=== PATIENT | female | born 1970 | race Caucasian/White ===

== ENCOUNTER 2017-01-16 08:06 | Emergency (ER) | payer BC ==
[2017-01-16] MEDS ORDERED: NS 0.9% 1000 ML* 2,000 ML IV ONE (08:59)
[2017-01-16] MEDS ORDERED: Ondansetron INJ* 2 MG/ML VIAL IV ONE (08:59)
--- NOTE | 2017-01-16 09:45 | UC ---
Wilbur Meyer Salem, scribed for Jennifer Han MD on 01/16/17 at 0901 . General HPI - HPI Summary HPI Summary: Patient is a 46 y/o female who presents to the with vomiting since 2 days ago. Her last vomiting episode was this morning and her last meal was yesterday afternoon. She reports a headache, chills, and occasional diarrhea and constipation, but denies fever. No abdominal pain. No dysuria. 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 She reports that no one at work or home is sick. Pt also states that her menstrual period began a week ago, but she is still experiencing heavy flow. She reports going through 5-6 pads/tampons per day. She states that this is not unusual for her, but she is concerned because of the vomiting. No lightheaded. She states she is on no medication and has no known drug allergies. Patients medication reviewed this visit. - History of Current Complaint Stated Complaint: VOMITING,HEAVY PERIOD Hx Obtained From: Patient Onset/Duration: Gradual Onset, Lasting Days, Still Present Timing: Constant Onset Severity: Moderate Current Severity: Moderate Associated Signs & Symptoms: Positive: Headache - Chills, diarrhea, and constipation., Other - Allergy/Home Medications Allergies/Adverse Reactions: Allergies Allergy/AdvReac Type Severity Reaction Status Date / Time No Known Allergies Allergy Verified 01/16/17 08:14 PMH/Surg Hx/FS Hx/Imm Hx Previously Healthy: Yes Cancer History Of: Denies: Breast Cancer - Surgical History Surgical History: None - Family History Known Family History: Positive: Cardiac Disease - Social History Occupation: Employed Full-time Lives: With Family Alcohol Use: None Substance Use Type: None Smoking Status (MU): Never Smoked Tobacco Review of Systems Constitutional: Chills, Other - No fever. Skin: Negative Eyes: Negative ENT: Negative Respiratory: Negative Cardiovascular: Negative Gastrointestinal: Diarrhea, Other - Constipation. Genitourinary: Negative Motor: Negative Neurovascular: Negative Musculoskeletal: Negative Neurological: Negative Psychological: Negative All Other Systems Reviewed And Are Negative: Yes Physical Exam Triage Information Reviewed: Yes Appearance: Well-Appearing, No Pain Distress, Well-Nourished Vital Signs: Initial Vital Signs Temp 99.4 F 01/16/17 08:14 Pulse 74 01/16/17 08:14 Resp 18 01/16/17 08:14 BP 139/87 01/16/17 08:14 Pulse Ox 98 01/16/17 08:14 Vital Signs Reviewed: Yes Eye Exam: Normal ENT Exam: Normal ENT: Positive: Hearing grossly normal, TMs normal, Other: - TM x 2 clear mmpasty , lips dry Dental Exam: Normal Neck exam: Normal Neck: Positive: Supple, Nontender, No Lymphadenopathy Respiratory Exam: Normal Respiratory: Positive: Chest non-tender, Lungs clear, Normal breath sounds, No respiratory distress, No accessory muscle use Cardiovascular Exam: Normal Cardiovascular: Positive: RRR, No Murmur Abdominal Exam: Normal Abdomen Description: Positive: Nontender, No Organomegaly, Soft, Other: - abd soft + BS no guarding, no rebound Bowel Sounds: Positive: Hypoactive Musculoskeletal Exam: Normal Neurological Exam: Normal Neurological: Positive: Alert, Muscle Tone Normal Psychological Exam: Normal Skin Exam: Normal Diagnostics - Laboratory Diagnostic Studies Completed/Ordered: POC Ur test: negative. Re-Evaluation - Re-Evaluation First Eval Re-Evaluation Time: 09:45 Change: Improved Comment: taking po water, feeling improved Second Eval Re-Evaluation Time: 10:30 Change: Improved Comment: She is feeling better, but reports a mild headache. Pt asked for grilled cheese and soup. Will receive some crackers in the UC. Course/Dx - Course Course Of Treatment: Pt with n/v and feeling dehydrated x 48 hours. Pt also with heavy periods. No sick contacts. Pt appears dry, otherwise non concerning exam - Differential Dx - Multi-Symptom Provider Diagnoses: dehydration. nausea, vomiting. menorrhagia Discharge - Discharge Plan Condition: Stable Disposition: HOME Prescriptions: Ondansetron ODT TAB* [Zofran 4 MG Odt TAB*] 4 mg PO Q6H PRN #10 tab.odt PRN Reason: Nausea Patient Education Materials: Acute Nausea and Vomiting (ED), Menorrhagia (ED) Forms: *Work Release Referrals: Aura Horowitz PA [Primary Care Provider] - Additional Instructions: -For the first 8 hours, it is recommend you drink plenty of clears - water, popsicles, gatorade, juice, soup broth and bland foods (dry toast, scrambled eggs, crackers, noodle) Wait until you feel better before eating spicy food, acidic food, fried food, fatty food - Okay to take medication as prescribed for nausea - GEt plenty of restful sleep - Contact your doctor to schedule a follow-up appointment. Contact your doctor or return with questions or concerns The documentation as recorded by the Wilbur walker Salem accurately reflects the service I personally performed and the decisions made by me, Jennifer Han MD.
[2017-01-16] MEDS ORDERED: Acetaminophen TAB* 325 MG PO ONE (10:32)
[2017-01-16 11:04] VITALS: BP 144/73
== END 2017-01-16 11:15 | disposition home or self-care (01) ==
LOC: UCEAST 08:06
DX: E86.0 Dehydration (principal); R11.2 Nausea with vomiting, unspecified; N92.0 Excessive and frequent menstruation with regular cycle
CPT/HCPCS: 81003; 84702; 87077; 87086; 87186; 96360; 96374; 99212; A9270-GY; G0463; J2405

== ENCOUNTER 2019-08-09 10:00 | Emergency (ER) | payer SELFPAY ==
--- OUTSIDE RECORDS SUMMARY | 2019-08-09 10:05 | XMS REPORT | Continuity of Care Document ---
:1970 External Reference #:[id number] Author Name Hamzah Johnson (transmitted by agent of provider [facility]) Address [address] [place] [address] Care Team Providers Name Role Phone HCP given Care Team Information Production Control Specialist Unavailable [facility] - Care Team Information Production Control Specialist [phone] Gastroenterology Neal Elias MD - Cardiovascular Care Team Information Production Control Specialist Disease Problems Active Problems Provider Date Pure hypercholesterolemia Aura Horowitz, P.AAlesha Onset: 02/01/2011 Obesity Aura Horowitz P.AAlesha Onset: 02/01/2011 Rosacea Aura Horowitz P.AAlesha Onset: 02/01/2011 Heart murmur Hamzah Johnson Onset: 02/01/2011 Hypothyroidism Aura Horowitz P.A. Onset: 11/04/2018 Mixed hyperlipidemia Aura Horowitz P.AAlesha Onset: 11/04/2018 Depressive disorder Aura Horowitz P.AAlesha Onset: 07/29/2019 Social History Type Date Description Comments Sex Unknown Tobacco Use Start: Unknown Denies Cigarette Use ETOH Use Denies alcohol use Recreational Drug Use Denies Drug Use Tobacco Use Start: Unknown Patient has never smoked Smoking Status Reviewed: 06/03/18 Patient has never smoked Seat Belt/Car Seat always uses seat belt Allergies, Adverse Reactions, Alerts Description No Known Drug Allergies Medications Active Medications SIG Qnty Indications Ordering Date Provider Doxycycline Hyclate 2 caps at one time 2caps S40.262A All [facility]bour, 01/2019 M.D. 100mg Capsules Levothyroxine Sodium take 1 tablet by 90tabs Z00.01 [facility], 11/15 mouth every M.D. 88mcg Tablets sunday, sunday, sunday (need labs in 4-6 weeks) Sertraline HCL 1 every morning 90tabs F32.9 [facility], 02/25/2018 100mg for depression M.D. Tablets One Daily 1 tab po daily Unknown 09/30/2017 Tablets Omeprazole 1 by mouth every 60caps K30 All [facility]bour, 02/28/2016 40mg day on empty M.D. Capsules DR stomach until gone Immunizations CPT Code Status Date Vaccine Lot # [id number] Given 07/29/2019 Influenza Virus Vaccine, Quadrivalent, Split, [id number] Preservative Free [id number] Given 06/03/2018 Influenza Virus Vaccine, Quadrivalent, Split, [id number] Preservative Free 02389 Given 06/04/2017 Influenza Virus Vaccine, Quadrivalent, Split, [id number] Preservative Free [id number] Given 12/22/2013 Adacel or Boostrix, [id number] Vital Signs Date Vital Result Comment 07/29/2019 9:51am BP Systolic 130 mmHg BP Diastolic 70 mmHg Height 67.25 inches 5'7.25" Weight 205.00 lb BMI (Body Mass Index) 31.9 kg/m2 11/04/2018 8:50am BP Systolic 124 mmHg BP Diastolic 84 mmHg Height 67 inches 5'7" Weight 203.00 lb BMI (Body Mass Index) 31.8 kg/m2 Results Test Acquired Date Facility Test Result H/L Range Note Order 07/29/2019 [facility] Occult Blood, F I T <pending> (Fecal Immunochemical Test) Procedures Date Code Description Status 07/11/2018 [id number] Mammogram Completed 07/03/2018 [id number] Mammogram Completed Medical Devices Description No Information Available Encounters Type Date Location Provider Dx Diagnosis Office Visit 07/29/2019 Main Office Aura Horowizt, S40.262A Insect bite 9:40a P.A. (nonvenomous) of left shoulder, init encntr E03.9 Hypothyroidism, unspecified Z23 Encounter for immunization Z12.11 Encounter for screening for malignant neoplasm of colon R01.1 Cardiac murmur, unspecified F32.9 Major depressive disorder, single episode, unspecified K21.9 Gastro-esophageal reflux disease without esophagitis Z68.31 Body mass index (BMI) 31.0-31.9, adult Assessments Date Code Description Provider 07/29/2019 S40.262A Insect bite (nonvenomous) of left shoulder, Auradonna Horowitz, P.A. initial encounter 07/29/2019 E03.9 Hypothyroidism, unspecified Aura Monticello, P.A. 07/29/2019 Z23 Encounter for immunization Aura Monticello, P.A. 07/29/2019 Z12.11 Encounter for screening for malignant Aura Monticello, P.A. neoplasm of colon 07/29/2019 R01.1 Cardiac murmur, unspecified Aura Monticello, P.A. 07/29/2019 F32.9 Major depressive disorder, single episode, Aura Monticello, P.A. unspecified 07/29/2019 K21.9 Gastro-esophageal reflux disease without Aura Monticello, P.A. esophagitis 07/29/2019 Z68.31 Body mass index (BMI) 31.0-31.9, adult Aura Monticello, P.A. Plan of Treatment Future Appointment(s):11/06/2019 8:00 am - Aura Horowitz, P.A. at [id number] - Aura Horowitz, P.A.F32.9 Major depressive disorder, single episode, unspecifiedNew Medication:Sertraline HCL 25 mg - 1/2 x 7 days then increased to- 1 tablet daily in the morning, for depressionFollow up:to see how meds are workin-3 esdctY08.9 Hypothyroidism, unspecifiedComments:discussed the disorder and management, pt stated understanding. Functional Status Description No Information Available Mental Status Description No Information Available Referrals Refer to Reason for Referral Status Appt Date Neal Elias MD Pt w heart murmur, last echo 2015. No sxs at this Sent 00/ time, no CP, SOB anyone in this office Consult and Testing - Specialist decides [place] [phone]
[2019-08-09 10:12] VITALS: BP 155/77
--- NOTE | 2019-08-09 10:24 | UC ---
Laceration HPI - HPI Summary HPI Summary: CHIEF COMPLAINT and HPI: This is a 49-year-old female who cut her left index finger while slicing chen shortly before she arrived in the urgent care center. Description of Pain: Intensity:minimal Location:distal left index Radiation:none Type:sharp Variation:, worse with touch VITAL SIGNS & SaO2 REVIEWED. Within normal limits unless noted here; blood pressure 155/77 NURSES NOTE REVIEWED."Pt cut themselves with a knife this AM while cutting already cooked chen, L index finger. Pt states UTD on tetanus." - History Of Current Complaint Stated Complaint: FINGER LACERATION Time Seen by Provider: 08/09/19 10:04 Hx Last Menstrual Period: irreg. Pain Intensity: 1 - Allergies/Home Medications Allergies/Adverse Reactions: Allergies Allergy/AdvReac Type Severity Reaction Status Date / Time No Known Allergies Allergy Verified 08/09/19 10:06 PMH/Surg Hx/FS Hx/Imm Hx - Additional Past Medical History Additional PMH: PAST MEDICAL HISTORY- CHRONIC and RECURRENT HEALTH PROBLEM LIST REVIEWED. , hypothyroidism, obesity, elevated cholesterol. Information relevant to present complaint: VISIT HISTORY REVIEWED. MEDICATIONS & ALLERGIES REVIEWED. HYPERTENSION STATUS:no antihypertensive medications. FAMILY HISTORY: cancer, cardiovascular disease. SOCIAL HISTORY: Smoker:no Home:lives with Employment:, works at the [employer]. Previously Healthy: Yes - Surgical History Surgical History: None - Family History Known Family History: Positive: Cardiac Disease - Social History Alcohol Use: None Substance Use Type: None Smoking Status (MU): Never Smoked Tobacco Review of Systems All Other Systems Reviewed And Are Negative: Yes Respiratory: Positive: Negative Cardiovascular: Positive: Negative Gastrointestinal: Positive: Negative Is Patient Immunocompromised?: No Physical Exam - Summary Physical Exam Summary: Appearance: The patient is well-appearing, is in no pain or distress, and is well-nourished. Eyes: Conjunctiva are clear. Pupils are equal and reactive to light and accommodation. Extra ocular muscle movement is intact. ENT: The hearing is grossly normal, the pharynx is normal, and the TMs are normal. There is no muffled or hoarse voice. No stridor. Neck: The neck is supple and there is no lymphadenopathy. Respiratory: The chest is non-tender to palpation and without crepitus. The lungs are clear, there are normal breath sounds, and there is no respiratory distress. No wheezes, rales or rhonchi. Cardiovascular: Heart sounds reveal a regular rate and rhythm. There are no clicks, rubs or murmurs. There are no carotid bruits or thrills. Circulation is grossly intact. Abdomen: The abdomen is soft and nontender. There is no organomegaly. Bowel sounds are present and within normal limits. No point tenderness at McBurneys point. No CVA tenderness. Musculoskeletal: Strength is intact. The patient moves all extremities. Examination of the left index finger: There is a 1.0 cm laceration of the distal nailbed and the pulp that is slanted toward the thumb. The area is moist , but not bleeding. Circulation, sensory and motor are fully intact. There are no other injuries. There is no laceration can be sutured. Neurological: The patient is alert. Motor and sensory are examination grossly intact. Speech is normal. Psychological: The patient displays age appropriate behavior, and is conversant. GCS=15. Skin: Negative for rashes. Triage Information Reviewed: Yes Vital Signs: Initial Vital Signs Temp 98.5 F 08/09/19 10:08 Pulse 52 08/09/19 10:08 Resp 16 08/09/19 10:08 BP 155/77 08/09/19 10:08 Pulse Ox 100 08/09/19 10:08 Laceration Course/Dx - Course/Dx Course Of Treatment: This is a 49-year-old female who cut her left index finger while slicing chen shortly before she arrived in the urgent care center. examination shows a small amputation of the distal left index finger, radial aspect. This area was cleaned and dressed. The patient was instructed on care and will watch for any signs of infection. - Diagnosis Provider Diagnosis: Laceration Discharge ED - Sign-Out/Discharge Documenting (check all that apply): Patient Departure All imaging exams completed and their final reports reviewed: No Studies - Discharge Plan Condition: Stable Disposition: HOME Patient Education Materials: Laceration (DC) Referrals: Aura Horowitz PA [Primary Care Provider] - Additional Instructions: WE DISCUSSED: PLEASE SEEK CARE AT THE EMERGENCY DEPARTMENT IF SYMPTOMS WORSEN OR IF NEW SYMPTOMS DEVELOP. FOLLOW UP WITH YOUR PRIMARY CARE PHYSICIAN IF CONDITION CONTINUES BEYOND 3 DAYS WITHOUT IMPROVEMENT. YOUR DIAGNOSIS IS:partial amputation of your left index finger near the nail. YOUR PRESCRIPTION RECOMMENDATION IS:none. OTHER INSTRUCTIONS:clean your wound morning and night with dilute peroxide or warm soapy water. Place antibiotic ointment on it and a Band-Aid. You can wet the finger, but don't soak it. Most importantly, watch for any signs of infection: Red, hot, swollen. Hypertension Discharge Instructions: Your blood pressure reading today was 155/77, indicating HYPERTENSION. Follow- up with your primary care provider within 4 weeks for blood pressure check and appropriate recommendations and treatment, as needed. FOR PAIN AND/OR SLEEP: For pain: Ibuprofen (Motrin and other brand names) 400-600mg PLUS acetaminophen (Tylenol and other brand names) 500mg - 1000mg every 8 hours. - Billing Disposition and Condition Condition: STABLE Disposition: Home
== END 2019-08-09 10:49 | disposition home or self-care (01) ==
LOC: UCEAST 10:00
DX: S61.211A Laceration without foreign body of left index finger without damage to nail, initial encounter (principal); W26.9XXA Contact with unspecified sharp object(s), initial encounter; Y92.9 Unspecified place or not applicable
CPT/HCPCS: 99212; G0463